=== PATIENT | male | born 1980 | race African-American/Black ===

== ENCOUNTER 2019-03-30 02:22 | Emergency (ER) | payer OTHER ==
[~2019-03-30] VITALS: Ht 175.3 cm; Wt 72.6 kg
[~2019-03-30 02:22] MED LIST: AZITHROMYCIN 2250 MG PO; CIPROFLOXACIN500 M1 PO; FLAGYL500 MG PO; IBUPROFEN 600600 M1 PO; NOHOMEMEDICATIONS; NORCO 5-325 TA1 EACH PO; PHENERGAN 25 MG25 M1 PO; POTASSIUM20 PO; ZOFRAN ODT4 MG PO
[2019-03-30 02:44] LABS: URINE BILIRUBIN NEGATIVE (Negative); URINE BLOOD NEGATIVE (Negative); URINE CLARITY CLEAR; URINE COLOR YELLOW; URINE GLUCOSE-RANDOM* NEGATIVE (Negative); URINE KETONES NEGATIVE (Negative); URINE LEUKOCYTES-REFLEX NEGATIVE (Negative); URINE NITRITE-REFLEX NEGATIVE (Negative); URINE PROTEIN (DIPSTICK) NEGATIVE (Negative); URINE UROBILINOGEN 0.2 E.U./dl (0.2-1.0)
[2019-03-30] MEDS ORDERED: NOHOMEMEDICATIONS (04:17)
[2019-03-30] MEDS ORDERED: DOXYCYCLINE 10100 MG PO (04:18)
[2019-03-30 04:29] VITALS: BP 117/87
== END 2019-03-30 04:30 | disposition still patient (30) ==
LOC: ER 02:22
PROVIDERS: Emergency Medicine
DX: N45.1 Epididymitis (principal); F17.210 Nicotine dependence, cigarettes, uncomplicated

== ENCOUNTER 2021-03-07 18:36 | Emergency (ER) | payer BC ==
[~2021-03-07] VITALS: Ht 175.3 cm; Wt 77.1 kg
[~2021-03-07 18:36] MED LIST changes: +DOXYCYCLINE 10100 MG PO
[2021-03-07 18:46] LABS: URINE BILIRUBIN NEGATIVE (Negative); URINE BLOOD NEGATIVE (Negative); URINE CLARITY CLEAR; URINE COLOR YELLOW; URINE GLUCOSE-RANDOM* NEGATIVE (Negative); URINE KETONES NEGATIVE (Negative); URINE LEUKOCYTES-REFLEX NEGATIVE (Negative); URINE NITRITE-REFLEX NEGATIVE (Negative); URINE PROTEIN (DIPSTICK) NEGATIVE (Negative); URINE SPECIFIC GRAVITY 1.025 (1.005-1.035); URINE UROBILINOGEN 0.2 E.U./dl (0.2-1.0)
[2021-03-07] MEDS ORDERED: NEO-POLYMYXIN-H10 ML OTIC (19:36)
[2021-03-07 19:39] VITALS: BP 129/90
[2021-03-09 12:56] LABS: HSV PCR SOURCE BLISTER
[2021-03-09 20:06] LABS: SYPHILIS AB Non Reactive (Non Reactive)
[2021-03-10 23:06] LABS: HSV 1 DNA Negative (Negative); HSV 2 DNA Negative (Negative)
== END 2021-03-07 19:41 | disposition home or self-care (01) ==
LOC: ER 18:36
PROVIDERS: Physician Assistant
DX: H92.02 Otalgia, left ear (principal); Z20.2 Contact with and (suspected) exposure to infections with a predominantly sexual mode of transmission; F17.210 Nicotine dependence, cigarettes, uncomplicated; N50.9 Disorder of male genital organs, unspecified

== ENCOUNTER 2021-03-17 00:44 | Emergency (ER) | payer BC ==
[~2021-03-17] VITALS: Ht 175.3 cm; Wt 77.1 kg
[~2021-03-17 00:44] MED LIST changes: +NEO-POLYMYXIN-H10 ML OTIC
[2021-03-17] MEDS ORDERED: NOHOMEMEDICATIONS (01:11)
[2021-03-17 01:39] LABS: URINE BILIRUBIN NEGATIVE (Negative); URINE BLOOD NEGATIVE (Negative); URINE CLARITY CLEAR; URINE COLOR YELLOW; URINE GLUCOSE-RANDOM* NEGATIVE (Negative); URINE KETONES NEGATIVE (Negative); URINE LEUKOCYTES-REFLEX NEGATIVE (Negative); URINE NITRITE-REFLEX NEGATIVE (Negative); URINE PROTEIN (DIPSTICK) NEGATIVE (Negative)
[2021-03-17] MEDS ORDERED: DOXYCYCLINE 10100 MG PO (02:10)
[2021-03-17 02:20] VITALS: BP 126/87
== END 2021-03-17 02:20 | disposition home or self-care (01) ==
LOC: ER 00:44
PROVIDERS: Emergency Medicine
DX: N50.812 Left testicular pain (principal); R10.32 Left lower quadrant pain; F17.210 Nicotine dependence, cigarettes, uncomplicated; Z98.890 Other specified postprocedural states